=== PATIENT | male | born 1955 | race Caucasian/White ===

== ENCOUNTER → 2019-01-15 | Day surgery (SDC) | payer OTHER ==
[2019-01-14 09:21] LABS: INR 0.92; PROTHROMBIN TIME 12.9 seconds (11.9-14.5)
[2019-01-14 09:22] LABS: PARTIAL THROMBOPLASTIN TIME 27.6 seconds (23.8-35.5)
[~2019-01-15] MED LIST: ACETAMINOPHEN 1000 MG/100 ML 100 ML IV ONE; ACETAMINOPHEN 1000 MG/100 ML IV ONE; AMLODIPINE BESY10 MG PO; BUPIVACAINE HCL 0.5% INJ 30 ML VIAL INJ ONE; DEXAMETHASONE SOD PHOS INJ 4 MG/ML VIAL ONE; DUOBRII 0.01%-100 GM TOP; FENTANYL CITRATE/PF 100MCG/2 ML INJ ONE; IBUPROFEN200 MG PO; KETOCONAZOLE15 GM TOP; LIDOCAINE HCL 2% LOCAL INJ 5 ML SDV VIAL INJ ONE; LORATADINE10 MG PO; LOSARTAN POTAS100 MG PO; MIDAZOLAM HCL 2 MG/2 ML VIAL ONE; NIACIN500 M2 PO; ONDANSETRON HCL INJ 2MG/ML 2ML 2 MG/ML VIAL ONE; OTEZLA30 MG PO; PRESERVISION A1 EAC2 PO; PROPOFOL IV EMULSION 10 MG/ML 20 ML VIAL ONE; SEVOFLURANE INHAL SOLN 250 ML PEN BTL ONE; VIT D3 PO
[2019-01-15 12:05] VITALS: BP 136/91
--- NOTE | 2019-01-15 18:42 | Operative Report ---
DATE OF PROCEDURE: 01/15/2019 SURGEON: Pete Holcomb MD PREOPERATIVE DIAGNOSIS: Left carpal tunnel syndrome. POSTOPERATIVE DIAGNOSIS: Left carpal tunnel syndrome. PROCEDURE: Left carpal tunnel release. ANESTHESIA: General. INDICATIONS: The patient is a 63-year-old man, who presents with left carpal tunnel syndrome and was taken to the OR for left carpal tunnel release. DESCRIPTION OF PROCEDURE: After induction of general anesthesia, the patient was placed on the operating table in supine position with left arm abducted over a hand table. A tourniquet was inflated over the upper arm to 250 mmHg after the hand was circumferentially prepped and draped in sterile fashion. A small midline incision was created over the median and palmar crease of the hand just distal to the distal flexor crease of the wrist. The subcutaneous fat was divided. The transverse carpal ligament was identified and incised with a #15C blade until the underlying median nerve came into view. As the railway yard assistant retracted the skin edges, the transverse carpal ligament was divided proximally and distally until the full length of the median nerve was exposed and decompressed within the carpal tunnel. The point of maximum compression of the nerve appeared to be 2.5 cm distal to the distal flexor crease of the wrist, where the ligament was at its thickest. More distally, the recurrent motor branch of the nerve was preserved within its fat pad. The wound was then copiously irrigated with bacitracin solution. Hemostasis was secured. The subcutaneous layer was closed with a 3-0 Vicryl suture. The skin was closed with a 3-0 nylon suture in a horizontal mattress fashion. A dressing was applied. The hand was wrapped. The patient was awakened, extubated, and taken to postanesthesia care unit in stable condition. No intraoperative complications were encountered. Estimated blood loss was minimal. Pete Holcomb MD PP/MODL /[id number]
== END | disposition home or self-care (01) ==
LOC: OR 07:27
PROVIDERS: ATTEND Neurological Surgery
DX: G56.02 Carpal tunnel syndrome, left upper limb (principal); L40.9 Psoriasis, unspecified; I10 Essential (primary) hypertension; Z88.1 Allergy status to other antibiotic agents; Z01.810 Encounter for preprocedural cardiovascular examination; Z01.812 Encounter for preprocedural laboratory examination; Z85.46 Personal history of malignant neoplasm of prostate
CPT/HCPCS: 36415; 64721; 85610; 85730; 93005; J0131; J1100; J2001; J2250; J2405; J2704; J3010